=== PATIENT | female | born 1945 | race Caucasian/White ===

== ENCOUNTER → 2017-08-09 | Outpatient (REF) | payer BC, MEDICARE | LOC: M LAB REF 15:00 | PROVIDERS: ATTEND Ophthalmology | DX: H02.831 Dermatochalasis of right upper eyelid (principal); H02.834 Dermatochalasis of left upper eyelid ==

== ENCOUNTER → 2022-09-13 | Outpatient (REF) | payer MEDICARE, BC | LOC: M SFHCDERM 13:57 | PROVIDERS: ATTEND Physician Assistant | DX: C44.329 Squamous cell carcinoma of skin of other parts of face (principal); C44.629 Squamous cell carcinoma of skin of left upper limb, including shoulder ==

== ENCOUNTER → 2022-12-07 | Outpatient (REF) | payer MEDICARE, BC | LOC: M SFHCDERM 14:28 | PROVIDERS: ATTEND Physician Assistant | DX: C44.629 Squamous cell carcinoma of skin of left upper limb, including shoulder (principal) ==

== ENCOUNTER → 2023-08-10 | Outpatient (REF) | payer MEDICARE, BC | LOC: M SFHCDERM 17:49 | PROVIDERS: ATTEND Physician Assistant | DX: D04.62 Carcinoma in situ of skin of left upper limb, including shoulder (principal) ==

== ENCOUNTER → 2024-11-07 | Outpatient (REF) | payer MEDICARE | LOC: M SFHCDERM 17:28 | PROVIDERS: ATTEND Physician Assistant | DX: C44.329 Squamous cell carcinoma of skin of other parts of face (principal) ==

== ENCOUNTER → 2025-03-05 | Outpatient (REF) | payer MEDICARE | LOC: M SFHCDERM 18:09 | PROVIDERS: ATTEND Dermatology | DX: D48.9 Neoplasm of uncertain behavior, unspecified (principal) ==

== ENCOUNTER → 2025-06-11 | Outpatient (REF) | payer MEDICARE | LOC: M SFHCDERM 17:53 | PROVIDERS: ATTEND Physician Assistant | DX: D09.9 Carcinoma in situ, unspecified (principal) ==

== ENCOUNTER 2025-09-25 13:25 | Outpatient (RCR) | payer MEDICARE | END 2025-10-20 | LOC: M PT 13:25 | PROVIDERS: ATTEND Specialist | DX: I87.2 Venous insufficiency (chronic) (peripheral) (principal) ==

== ENCOUNTER → 2025-11-05 | Outpatient (REF) | payer MEDICARE | LOC: M SFHCDERM 17:57 | PROVIDERS: ATTEND Physician Assistant | DX: L82.0 Inflamed seborrheic keratosis (principal) ==